=== PATIENT | female | born 1930 | race Caucasian/White ===

== ENCOUNTER 2017-04-25 19:37 | Emergency (ER) | payer OTHER, MEDICARE ==
[2017-04-25] MEDS ORDERED: Phenergan 25 MG INJ IV ONE (20:16)
--- NOTE | 2017-04-25 20:23 | ERPHSYRPT ---
- History of Present Illness Time Seen by Provider: 04/25/17 20:10 Source: patient Exam Limitations: no limitations Patient Subjective Stated Complaint: pt reports that sunday wasnt doing anything when she felt a "pop" left anterior top of head. reports that since then she has felt dizzy and pain has been relieved some by tylenol. Triage Nursing Assessment: pwd alert/oriented and able to answer questions. states that she only feels "blurry or full" states pupils reactive to light. appears to have regular heart rhythm and Physician History: 4 DAYS AGO PT HAD A SEVERE SHARP PAIN ON THE LEFT FRONT OF HER HEAD LASTING ONLY 1 SECOND AND SINCE HAS HAD DIZZINESS(OFF-BALANCE) AND FEELS WOOZY WITH MINIMAL GENERALIZED WEAKNESS. PT DENIES CHEST PAIN, ABDOMINAL PAIN, SHORTNESS OF AIR, VOMITING. Allergies/Adverse Reactions: NKA Allergy (Verified 04/25/17 20:08) Home Medications: Amlodipine Besylate 5 mg [Norvasc 5 mg] 2.5 mg PO DAILY 04/25/17 [History] Furosemide 20 mg [Lasix 20 mg] 10 mg PO DAILY 04/25/17 [History] Methyldopa 250 mg PO TID 04/25/17 [History] Nebivolol HCl [Bystolic] 10 mg PO DAILY 04/25/17 [History] Raloxifene HCl 60 mg [Evista 60 MG] 60 mg PO DAILY 04/25/17 [History] Rosuvastatin Calcium [Crestor] 10 mg PO DAILY 04/25/17 [History] Spironolactone 25 mg [Aldactone 25 MG] 25 mg PO DAILY 04/25/17 [History] Valsartan/Hydrochlorothiazide [Valsartan-Hctz 320-25 mg Tab] 1 each PO DAILY [History] Hx Tetanus, Diphtheria Vaccination/Date Given: Yes (unsure) Hx Influenza Vaccination/Date Given: Yes Hx Pneumococcal Vaccination/Date Given: No Immunizations Up to Date: Yes - Review of Systems Constitutional: Weakness (GENERALIZED) Ears, Nose, & Throat: No Tinnitus Respiratory: No Dyspnea Cardiac: No Chest Pain Abdominal/Gastrointestinal: No Abdominal Pain, No Vomiting Neurological: Dizziness, Headache All Other Systems: Reviewed and Negative - Social History Smoking Status: Never smoker - Nursing Vital Signs Nursing Vital Signs: Initial Vital Signs Temperature 97.4 F Temperature Source Oral Pulse Rate 68 Respiratory Rate 16 Blood Pressure [] 138/66 Pain Intensity 0 - Physical Exam General Appearance: alert Eye Exam: PERRL/EOMI, eyes nml inspection Ears, Nose, Throat Exam: TMs normal, pharynx normal, dry mucous membranes Neck Exam: normal inspection Respiratory Exam: lungs clear Cardiovascular Exam: normal heart sounds Gastrointestinal/Abdomen Exam: soft, normal bowel sounds Back Exam: normal range of motion Extremity Exam: normal inspection, No pedal edema Neurologic Exam: alert, oriented x 3, cooperative, normal mood/affect, sensation nml, other (NO BABINSKI PRESENT), No motor deficits, No motor weakness Skin Exam: warm, dry - Course Nursing assessment & vital signs reviewed: Yes EKG Interpreted by Me: RATE (65), Sinus Rhythm, NORMAL AXIS, NORMAL INTERVALS - Radiology Exams Chest X-ray Interpretation: Interpreted by me, No Pneumonia - CT Exams Head CT Interpretation: Tele-radiologist Report (NO ACUTE INTRACRANIAL ABNORMALITY.) Ordered Tests: Active Orders 24 hr Category Date Time Status Tactical Debriefer STAT Care 04/25/17 20:16 Active Clean Catch Urine Specimen STAT Care 04/25/17 20:16 Active EKG-ER Only STAT Care 04/25/17 20:16 Active IV Insertion STAT Care 04/25/17 20:06 Active Oxygen-ED Only NASAL CANNULA 2 lpm Care 04/25/17 20:16 Active Pulse Oximetry (ED) STAT Care 04/25/17 20:16 Active CHEST 1 VIEW (PORTABLE) Stat Exams 04/25/17 20:16 Taken HEAD WITHOUT CONTRAST [CT] Stat Exams 04/25/17 20:18 Taken AMYLASE Stat Lab 04/25/17 20:21 Completed CBC W DIFF Stat Lab 04/25/17 20:21 Completed CMP Stat Lab 04/25/17 20:21 Completed LIPASE Stat Lab 04/25/17 20:21 Completed MAGNESIUM Stat Lab 04/25/17 20:21 Completed TROPONIN Q3H Lab 04/25/17 20:21 Completed TROPONIN Q3H Lab 04/25/17 23:30 Ordered TROPONIN Q3H Lab 04/26/17 02:30 Ordered TROPONIN Q3H Lab 04/26/17 05:30 Ordered TROPONIN Q3H Lab 04/26/17 08:30 Ordered UA W/ MICROSCOPIC Stat Lab 04/25/17 21:30 Completed Urine Triage Profile Stat Lab 04/25/17 21:30 Completed Medication Summary Generic Name Dose Route Start Last Admin Trade Name Layla PRN Reason Stop Dose Admin Sodium Chloride 1,000 mls @ 100 mls/hr 04/25/17 20:30 04/25/17 20:40 Sodium Chloride 0.9% 1000 Ml IV 05/25/17 20:29 100 mls/hr .Q10H GAVIN Administration Discontinued Medications Generic Name Dose Route Start Last Admin Trade Name Layla PRN Reason Stop Dose Admin Promethazine HCl 6.25 mg 04/25/17 20:16 04/25/17 20:40 Phenergan 25 Mg Inj IV 04/25/17 20: 6.25 mg STAT ONE Administration Promethazine HCl Confirm 04/25/17 20:37 Phenergan 25 Mg Inj Administered 04/25/17 20:38 Dose 25 mg .ROUTE .[employer]-MED ONE Lab/Rad Data: Laboratory Result Diagrams 04/25/17 20:21 04/25/17 20:21 Laboratory Results 04/25/17 04/25/17 04/25/17 Range/Units 21:30 21:30 20:21 WBC (4.0-10.5) K/mm3 RBC (4.1-5.4) M/mm3 Hgb (12.0-16.0) gm/dl Hct (35-47) % MCV (78-100) fl MCH (26-32) pg MCHC (32-36) g/dl RDW (11.5-14.0) % Plt Count (150-450) K/mm3 MPV (6-9.5) fl Gran % (36.0-66.0) % Lymphocytes % (24.0-44.0) % Monocytes % (0.0-12.0) % Eosinophils % (0.00-5.0) % Basophils % (0.0-0.4) % Basophils # (0-0.4) Sodium (136-145) mEq/L Potassium (3.5-5.1) mEq/L Chloride (98-107) mEq/L Carbon Dioxide (21-32) mEq/L Anion Gap (5-15) MEQ/L BUN (9-20) mg/dL Creatinine (0.55-1.30) mg/dl Estimated GFR ML/MIN Glucose (70-110) MG/DL Calcium (8.5-10.1) mg/dL Magnesium (1.8-2.4) mg/dL Total Bilirubin (0.2-1.0) mg/dL AST (15-37) U/L ALT (12-78) U/L Alkaline Phosphatase (46-116) U/L Troponin I < 0.017 (0.000-0.056) ng/ml Serum Total Protein (6.4-8.2) gm/dL Albumin (3.4-5.0) g/dL Amylase (25-115) U/L Lipase (73-393) U/L Ur Collection Type CLEAN CATCH Urine Color YELLOW (YELLOW) Urine Appearance CLEAR (CLEAR) Urine pH 6.0 (5-6) Ur Specific [place] 1.015 (1.005-1.025) Urine Protein NEGATIVE (Negative) Urine Glucose (UA) NEGATIVE (NEGATIVE) mg/dL Urine Ketones NEGATIVE (NEGATIVE) Urine Nitrite NEGATIVE (NEGATIVE) Urine Bilirubin NEGATIVE (NEGATIVE) Urine Urobilinogen 0.2 (0-1) mg/dL Urine WBC (Auto) TRACE (NEGATIVE) Urine RBC (Auto) NEGATIVE (0-5) Jacky/ul Urine Microscopic WBC 2-5 (0-5) /HPF Ur Epithelial Cells FEW (FEW) /HPF Urine Bacteria FEW (NEGATIVE) /HPF Urine Opiates Level NEG. (NEGATIVE) Ur Methadone NEG. (NEGATIVE) Urine Barbiturates NEG. (NEGATIVE) Ur Phencyclidine (PCP) NEG. (NEGATIVE) Urine Amphetamine NEG. (NEGATIVE) U Benzodiazepine Level NEG. (NEGATIVE) Urine Cocaine NEG. (NEGATIVE) Urine Marijuana (THC) NEG. (NEGATIVE) Specimen Received [id number] 04/25/17 04/25/17 Range/Units 20:21 20:21 WBC 7.2 (4.0-10.5) K/mm3 RBC 4.07 L (4.1-5.4) M/mm3 Hgb 12.7 (12.0-16.0) gm/dl Hct 38.7 (35-47) % MCV 95.1 (78-100) fl MCH 31.2 (26-32) pg MCHC 32.8 (32-36) g/dl RDW 12.4 (11.5-14.0) % Plt Count 186 (150-450) K/mm3 MPV 11.2 H (6-9.5) fl Gran % 51.5 (36.0-66.0) % Lymphocytes % 34.9 (24.0-44.0) % Monocytes % 11.9 (0.0-12.0) % Eosinophils % 1.3 (0.00-5.0) % Basophils % 0.4 (0.0-0.4) % Basophils # 0.03 (0-0.4) Sodium 133 L (136-145) mEq/L Potassium 3.7 (3.5-5.1) mEq/L Chloride 99 (98-107) mEq/L Carbon Dioxide 25.1 (21-32) mEq/L Anion Gap 12.9 (5-15) MEQ/L BUN 26 H (9-20) mg/dL Creatinine 1.79 H (0.55-1.30) mg/dl Estimated GFR 28 ML/MIN Glucose 113 H (70-110) MG/DL Calcium 8.8 (8.5-10.1) mg/dL Magnesium 1.8 (1.8-2.4) mg/dL Total Bilirubin 0.30 (0.2-1.0) mg/dL AST 26 (15-37) U/L ALT 12 (12-78) U/L Alkaline Phosphatase 54 (46-116) U/L Troponin I (0.000-0.056) ng/ml Serum Total Protein 6.8 (6.4-8.2) gm/dL Albumin 3.6 (3.4-5.0) g/dL Amylase 131 H (25-115) U/L Lipase 307 (73-393) U/L Ur Collection Type Urine Color (YELLOW) Urine Appearance (CLEAR) Urine pH (5-6) Ur Specific [place] (1.005-1.025) Urine Protein (Negative) Urine Glucose (UA) (NEGATIVE) mg/dL Urine Ketones (NEGATIVE) Urine Nitrite (NEGATIVE) Urine Bilirubin (NEGATIVE) Urine Urobilinogen (0-1) mg/dL Urine WBC (Auto) (NEGATIVE) Urine RBC (Auto) (0-5) Jacky/ul Urine Microscopic WBC (0-5) /HPF Ur Epithelial Cells (FEW) /HPF Urine Bacteria (NEGATIVE) /HPF Urine Opiates Level (NEGATIVE) Ur Methadone (NEGATIVE) Urine Barbiturates (NEGATIVE) Ur Phencyclidine (PCP) (NEGATIVE) Urine Amphetamine (NEGATIVE) U Benzodiazepine Level (NEGATIVE) Urine Cocaine (NEGATIVE) Urine Marijuana (THC) (NEGATIVE) Specimen Received - Departure Time of Disposition: 22:58 Departure Disposition: Home Clinical Impression: DEHYDRATION, UTI, DIZZINESS Condition: Fair Critical Care Time: No Instructions: Dehydration -- Adult, Urinary Tract Infection (UTI) Additional Instructions: FOLLOW UP WITH PRIVATE DOCTOR TOMORROW. DRINK MORE WATER. Prescriptions: Meclizine HCl 25 mg [Antivert 25 mg] 25 mg PO Q8H PRN PRN #20 tablet PRN Reason: Dizziness Nitrofurantoin Macro 100 mg [Macrobid 100MG Capsule] 100 mg PO BID #20 capsule
[2017-04-25 20:24] LABS: BASOPHIL % 0.4 % (0.0-0.4); Eosinophil % 1.3 % (0.00-5.0); Granulocytes % 51.5 % (36.0-66.0); Lymphocytes % 34.9 % (24.0-44.0); Mean Cell Volume 95.1 fl (78-100); Mean Corpuscular Hemoglobin 31.2 pg (26-32); Mean Platelet Volume 11.2 fl (6-9.5); Monocytes % 11.9 % (0.0-12.0); Platelet Count 186 K/mm3 (150-450); Red Blood Count 4.07 M/mm3 (4.1-5.4); Red Cell Distribution Width 12.4 % (11.5-14.0); White Blood Count 7.2 K/mm3 (4.0-10.5)
[2017-04-25] MEDS ORDERED: Sodium Chloride 0.9% 1000 ML 1,000 ML IV SCH (20:30)
[2017-04-25 20:37] LABS: ALBUMIN 3.6 g/dL (3.4-5.0); ANION GAP 12.9 MEQ/L (5-15); BILIRUBIN,TOTAL 0.3 mg/dL (0.2-1.0); Carbon Dioxide 25.1 mEq/L (21-32); MAGNESIUM 1.8 mg/dL (1.8-2.4); Potassium 3.7 mEq/L (3.5-5.1); Total Protein 6.8 gm/dL (6.4-8.2)
[2017-04-25] MEDS ORDERED: Sodium Chloride 0.9% 1000 ML 1,000 ML ONE (20:37)
[2017-04-25] MEDS ORDERED: Phenergan 25 MG INJ ONE (20:37)
[2017-04-25 21:46] LABS: Collection Type CLEAN CATCH
[2017-04-25 21:47] LABS: ADD URINE CULTURE? NO (NO); Bacteria FEW /HPF (NEGATIVE); COMPLETE URINE MICROSCOPIC? YES; Epithelial Cells FEW /HPF (FEW)
[2017-04-25 22:01] VITALS: PULSE 68
[2017-04-25] MEDS ORDERED: ROCEPHIN 1 Gm-D5w 50 ml Bag** 1 G/50 ML IVPB IV STA (22:55)
[2017-04-25] MEDS ORDERED: Sodium Chloride 0.9% 1000 ML 1,000 ML IV STA (22:55)
[2017-04-25 22:56] VITALS: O2SAT 95
[2017-04-25] MEDS ORDERED: ROCEPHIN 1 Gm-D5w 50 ml Bag** 1 G/50 ML IVPB IV ONE (23:01)
[2017-04-26 00:02] VITALS: BP 178/60
--- NOTE | 2017-04-26 14:54 | XRAY ---
Exam: CT of the head without IV contrast from 04/25/2017. CTDI: 70.48 Comparison: None. Indication: Headache, complains of severe/sharp pain in left frontal area of head with dizziness and weakness. Technique: Non-IV contrast axial images were obtained through the brain. Reconstructed coronal and sagittal images were created and reviewed. Findings: The ventricles appear of unremarkable size for the patient's age of 86 years. No focal mass effect or midline shift is seen. No acute intracranial bleed or abnormal extra-axial fluid collection is seen. Faint bilateral basal ganglia calcifications are seen. There is some subtle bilateral periventricular and subcortical white matter changes, likely reflecting mild chronic small vessel ischemic disease. On axial image #16 there is a small round low-attenuation density within the peripheral left cerebellar hemisphere measuring about 6.5 mm in width which may represent a focal cerebellar infarct. No other low attenuation lesions are seen to suggest infarction. There is moderate prominence of the cortical sulci and basilar cisterns consistent with age-appropriate atrophy. Some vascular calcification is seen within both distal vertebral arteries and carotid siphons. The calvarium of the skull reveals no acute fracture or destructive lesion. The visualized paranasal sinuses are clear. The mastoid air cells appear unremarkable. Impression 1: 1. Mild to moderate age-appropriate atrophy/cerebral volume loss with subtle chronic microvascular disease. 2. No acute intracranial bleed, mass, or other acute intracranial brain process is seen. 3. 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 I believe this is old.
--- NOTE | 2017-04-26 19:42 | XRAY ---
Exam: AP portable chest film from 04/25/2017. Comparison: None. Indication: Dizziness. Findings: The film was obtained in a mildly lordotic projection. The transverse heart size appears within normal limits. I suspect a small epicardial fat-pad at the left cardiophrenic angle. However, the left hemidiaphragm is mostly obscured. This might be due to film underpenetration. However, a left basilar airspace process such is infiltrate and/or atelectasis cannot be excluded based on this image. A follow-up PA and lateral chest film may be helpful for further evaluation. There is mild tortuosity of the descending thoracic aorta. Multiple overlying EKG leads are seen. The lungs are adequately expanded. The remainder of the lungs reveals no other infiltrates, vascular congestion, pneumothorax, or pleural fluid is seen. No gross bone abnormality is seen. Impression: 1. There is mild increased opacity at the left lung base with significant partial obscuration of the left hemidiaphragm. It is possible this is due to a combination of epicardial fat and radiographic underpenetration. However, the possibility of underlying focal airspace disease such as infiltrate and/or atelectasis is not excluded. Further evaluation with an upright PA and lateral chest film is recommended. 2. No other acute cardiopulmonary process is seen.
== END 2017-04-25 23:55 | disposition home or self-care (01) ==
LOC: ED 19:37
DX: E86.0 Dehydration (principal); N39.0 Urinary tract infection, site not specified; R42 Dizziness and giddiness; R51 Headache; Z79.899 Other long term (current) drug therapy; R53.1 Weakness
CPT/HCPCS: 36000; 36415; 70450; 71010; 80053; 80307; 81000; 82150; 83690; 83735; 84484; 85025; 93005; 93041; 96374; 99284; J0696; J2550